=== PATIENT | male | born 1955 | race Caucasian/White ===

== ENCOUNTER 2017-01-16 16:33 | Inpatient (IN) | payer BC ==
--- NOTE | ~2017-01-16 | DS ---
Unit #: [id number] #: [id number] Patient: KALYAN BOBBY [id number] [address] [place], [place] [address] [id number] I MR#: [id number] NAME: KALYAN BOBBY. ROOM: 316 Age: 61 Sex: M Admission Date: 01/16/2017 : 1955 Discharge Date: 01/19/2017 Attending Physician: Dano Mcclure M.D. Primary Care Physician: Johnna Ac A.P.R.N. DISCHARGE SUMMARY PRINCIPAL DISCHARGE DIAGNOSES 1. Acute bilateral cerebellar infarcts. 2. Diffuse atherosclerotic plaque, stage IV atheroma of the aorta. 3. Qzaa-nd-vzuudzir concentric left ventricular hypertrophy. 4. Grade 1 diastolic dysfunction. 5. Hypertension. 6. Hyperlipidemia. 7. Tobacco use. 8. Complete occluded left vertebral artery. 9. 50% stenosis bilateral internal carotid arteries. 10. Type 2 diabetes mellitus, in poor control. 11. B12 deficiency. 12. Polycythemia. PROCEDURES Transesophageal echo on 01/19/2017. CONSULTANTS Dr. Gibbs from Neurology; Dr. Darling from Cardiology. REASON FOR HOSPITALIZATION The patient is a 61-year-old white male with history of tobacco use two packs a day, type 2 diabetes mellitus, hypertension, hyperlipidemia. 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 He eventually arrived in the emergency room much outside of the window for thrombolytic therapy. It was initially felt that his symptoms were improving and he might have had a TIA versus a CVA. On admission, he was afebrile. Blood pressure was 115/99, O2 sats were 98%. Vital signs were otherwise stable. CBC was normal except for hemoglobin of 18.1. PT/INR was within normal limits. CMP was normal except for random blood sugar of 252, sedimentation rate was 8, CRP 0.5, total cholesterol 279, triglycerides 659, HDL 30. CT scan of the head in the emergency room without contrast showed no active disease. Chest x-ray, no active disease. CT angiogram showed an occluded left vertebral artery and 50% stenosis of the bilateral internal carotid arteries. He did have collaterals around the left vertebral occlusion. The right vertebral artery was small, but patent. HOSPITAL COURSE The patient was admitted to the telemetry bed. Hemoglobin A1c was checked and was 8.7. He was placed on Accu-Cheks a.c. and h.s., low-dose sliding scale insulin. Neurology was consulted. They ordered a B12 and folic Unit #: [id number] #: [id number] Patient: KALYAN BOBBY. His B12 was low, but he had been started on heparin before realize this, so was not started on injections. His folic acid was 12.2, low within normal limits. Cardiac enzymes were normal. Again, he was started on a heparin drip. An MRI was performed and showed a large acute infarct in left cerebellar hemisphere involving the anterior aspect of the vermis. There were also punctate acute infarcts in the superior portion of the right cerebellar hemisphere without any evidence of hemorrhage. Because of this, it was felt that he might have likely had embolic phenomenon and that is why he was heparinized. He underwent transthoracic echo, which showed moderate concentric LVH, grade 1 diastolic dysfunction, but was otherwise normal without any evidence of patent foramen ovale by IV saline bubble study. He then underwent transesophageal echo, which was within normal limits except for a large atheromatous plaque within the aorta and felt that he should be on warfarin. He refused bridging with Lovenox. He refused inpatient [facility] at [facility] and is being discharged home on a healthy heart constant carb diet. He has been started on warfarin. We will check his PT/INR in 3 days with results called to the office for followup in 1 week. [facility] is to follow for home physical therapy and PT/INR. He is to see Dr. Leland Damian in 6 to 8 weeks. He is not to return to work until he is cleared by Cardiology. He was provided smoking cessation resources. Could be on aspirin 81 mg daily until his PT/INR is above 2. He was started on a low dose, because of the risk for hemorrhagic evolution of his stroke. He has given warfarin 5 mg p.o. today and then and 2.5 mg daily thereafter until his protime checked on 01/22/2017. He is on Januvia 100 mg daily, Lipitor 80 mg daily, Cozaar 50 mg daily, aspirin 81 mg daily again until his PT/INR is above 2 and will be started on B12 as well. We will start orally and then check in the office. He is also on Invokana 300 mg p.o. q.a.m. He will need to have a followup fasting lipid profile, LFTs, and CPK in about 6 weeks per discharge. Dictated by... Liam Vazquez/brad TD: 01/20/2017 14:08 JOB #: [id number] DISCHARGE SUMMARY Page 1 of 1 X Dano Mcclure MD X DISCHARGE SUMMARY
--- NOTE | ~2017-01-16 | CT18 ---
[facility] A Service of [facility] RADIOLOGY TEXT RESULTS PATIENT: KALYAN BOBBY LOCATION: [facility] 316-01 : 57 UNIT #: [id number] AGE: [address]: Dano Mcclure MD SEX: M ORDER DR: [id number] [facility] [address] [facility]. [place], [place] [address] [id number] I MR#: [id number] Acc #: [id number] NAME: KALYAN BOBBY. : 1955 SEX: M STUDY DATE/TIME: 01/16/2017 15:59 UNIT: [address] ROOM: [facility] STUDY DESCRIPTION: CT Angio Head Stroke Attending Physician: Dano Mcclure M.D. Ordering Physician: Marita Yoder M.D. Primary Care Physician: Johnna Ac A.P.R.N. MEDICAL IMAGING REPORT This report is preliminary unless electronic signature is present EXAM CT scan head and neck with contrast with carotid CT angiography 01/16/2017 HISTORY Left-sided facial numbness, headache and slurred speech onset this morning. TECHNIQUE Axial imaging was obtained from the mid mediastinum to the top of head with contrast. 80 mL of Isovue was used. CT angiography was performed with thick sliding MIPs, curved planar reformats and 3-D volumetric imaging with surface shaded and volume shaded display. This CT exam was performed with one or more of the following radiation dose reduction techniques: automatic exposure control, adjustment of mA and/or kV according to patient size, and iterative reconstruction. FINDINGS Extravascular structures are unremarkable. The CT angiographic study shows mild atherosclerotic change at the great vessel origins. There is mild soft plaque at the left subclavian artery origin that narrows the origin about 30%. In the posterior circulation the right vertebral is widely patent. The left vertebral is occluded proximally and fills at the mid cervical region by collaterals. Distally the left vertebral is the more dominant vertebral and it is widely patent distally as is the basilar artery. In the carotid circulation intimal thickening is seen in both common carotid arteries. There is plaque across both bifurcations. Maximum stenosis by NASCET criteria on both sides is approximately 50%. This is borderline hemodynamically significant. The distal carotids up through the siphons show nonocclusive plaque. No severe siphon stenosis is seen. [facility] A Service of [facility] RADIOLOGY TEXT RESULTS PATIENT: KALYAN BOBBY LOCATION: [facility] 316-01 : 57 UNIT #: [id number] AGE: [address]: Dano Mcclure MD SEX: M ORDER DR: In the intracranial circulation there is no evidence of aneurysm, vascular malformation or major branch vessel occlusion. No severe intracranial stenosis is seen. IMPRESSION Plaque at both carotid bifurcations with borderline significant stenosis of about 50% by NASCET criteria on both sides. No evidence of intracranial occlusive disease. No evidence of aneurysm. Mild plaque at the great vessel origins. Also noted is occlusion of the left vertebral artery at its origin but it fills by collaterals in the mid cervical region and is patent distally. The right vertebral is small caliber but patent. STAT * RESULT Dictated by... Simón Lin M.D. THIS IS AN ELECTRONICALLY VERIFIED REPORT Simón Lin M.D. at 01/18/2017 9:39 PM Violet TD: 01/16/2017 16:48 JOB #: [id number] MEDICAL IMAGING REPORT COPY
--- NOTE | ~2017-01-16 | MR18 ---
[facility] A Service of [facility] RADIOLOGY TEXT RESULTS PATIENT: KALYAN BOBBY LOCATION: [facility] 316- : 57 UNIT #: [id number] AGE: [address]: Dano Mcclure MD SEX: M ORDER DR: [id number] [facility] [address] [facility]. [place], [place] [address] [id number] I MR#: [id number] Acc #: [id number] NAME: KALYAN BOBBY. : 1955 SEX: M STUDY DATE/TIME: 01/16/2017 19:57 UNIT: [address] ROOM: [facility] STUDY DESCRIPTION: MR Brain Wo Contrast Attending Physician: Dano Mcclure M.D. Ordering Physician: Dano Mcclure M.D. Primary Care Physician: Johnna Ac A.P.R.N. MRI CENTER REPORT This report is preliminary unless electronic signature is present. EXAM MRI brain without contrast. DATE OF EXAM 01/16/2017 INDICATIONS Slurred speech. Left facial numbness since 10:30 a.m. today. PROCEDURE Multiplanar, multisequence MR imaging of the brain without the administration of contrast. COMPARISON Comparison head CT from earlier on the same day. FINDINGS There is a large acute infarct in the left cerebellum. It measures approximately 4.6 x 2.9 cm. There is patchy restricted diffusion along the superior aspect of the right cerebellar hemisphere, also suspected to represent small punctate acute infarcts. There is no evidence for acute hemorrhage or significant mass effect. The left cerebellar infarct does extend to involve the anterior portion of the vermis. There is no acute hemorrhage, extraaxial collection or hydrocephalus. There is lack of a normal-appearing flow void in the left vertebral artery. Refer to the earlier CTA of the head and neck for additional details. Otherwise, the remaining major intracranial vessels remain intact. There is a right mastoid air cell effusion. IMPRESSION 1. Large acute infarct in the left cerebellar hemisphere involving the anterior aspect the vermis. There are also punctate acute infarcts [facility] A Service of [facility] RADIOLOGY TEXT RESULTS PATIENT: KALYAN BOBBY LOCATION: [facility] 316-01 : 57 UNIT #: [id number] AGE: [address]: Dano Mcclure MD SEX: M ORDER DR: in the superior portion of the right cerebellar hemisphere. No significant mass effect or evidence for hemorrhage. 2. Lack of a flow void in the left vertebral artery. Refer to the earlier performed CTA of the head and neck for additional details. Dictated by... Julien Jasmine M.D. THIS IS AN ELECTRONICALLY VERIFIED REPORT Julien Jasmine M.D. at 01/19/2017 7:22 AM VU/artie TD: 01/17/2017 15:45 JOB #: [id number] MRI CENTER REPORT COPY
--- NOTE | ~2017-01-16 | CO ---
Unit #: [id number] #: [id number] Patient: KALYAN BOBBY [id number] [facility] [address] [facility]. [place], [place] [address] [id number] I MR#: [id number] NAME: KALYAN BOBBY. ROOM: 316 Age: 61 Sex: M Admission Date: 01/16/2017 : 1955 Attending Physician: Dano Mcclure M.D. Primary Care Physician: Johnna Ac A.P.R.N. Consultation Date: 01/17/2017 CONSULTATION REPORT PRIMARY CARE PHYSICIAN Johnna Ac A.P.R.N. REASON FOR CONSULTATION Dizziness. PATIENT IDENTIFICATION This is a 61-year-old right-handed white male, who was evaluated in room 316 at [facility]. SOURCE OF INFORMATION The patient and evaluation done by admitting team. PROBLEM LIST 1. History of tobacco abuse. 2. Type 2 diabetes mellitus. 3. Hypertension. 4. Hyperlipidemia. HISTORY OF PRESENT ILLNESS This is a 61-year-old right-handed white male, who actually presented to the emergency room at 03:56 p.m. yesterday for episode of dizziness. There is question about some face numbness. He said that this happened between 10 to 10:30 a.m. 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 He was very concerned about it. Looking at his history, there was no double vision, but initially it is reported that he had some change in vision and the issue was that he could not stay in the barrera. 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 When he came in here, symptoms were almost resolved. Obviously, he was not a tPA candidate because of duration and since his symptoms resolved, he was put in for possible TIA. His CT was reported as unremarkable. In the meantime, he ended up with MRI. The MRI shows a large left cerebellar infarct and a few areas which could be subacute to acute areas on the right side also. He may have lack of flow void in the left vertebral artery, but the right is okay and the basilar were reported okay as far as CTA is concern. Other thing that is important is that his blood pressure was significantly elevated as high as 171 systolic. On top of that, his hemoglobin A1c was 8.7. His H and H are 18.1 and 53.3, and his triglycerides were 659. He was supposedly on Lipitor 40 mg. He was not on aspirin. He also is a heavy smoker. Unit #: [id number] #: [id number] Patient: KALYAN BOBBY He does not drink, but it looks like he is in transportation, so probably keeping himself thirsty in order not to stop frequently. He clearly is much better. He has been up and about to go to the bathroom, but the concern is along with all his risk factors is a proximal source and I cannot really rule out arch atheroma, but on top of that, there are no palpitations reported, but I cannot rule out otherwise cardiac source. His echo was okay. No prior TIAs. No head injury or trauma or exposure to toxin. No episode of dissection. PAST MEDICAL HISTORY As discussed above. PAST SURGICAL HISTORY None. FAMILY HISTORY No stroke or hypercoagulable state or cornea issues. ALLERGIES None. HOME MEDICATIONS Losartan 50 mg, Invokana 300 mg, atorvastatin 10 mg. SOCIAL HISTORY He is . Lives with his . 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 No alcohol or drug use. REVIEW OF SYSTEMS The dizziness which is since resolved. CONSTITUTIONAL: No weight issues, fever, chills, rigor, or sweats. No sleep problems. HEENT: No headaches. No double vision, earache, runny nose, or sore throat. CARDIOVASCULAR: No chest pain, clubbing, cyanosis, orthopnea, or palpitation. PULMONARY: No shortness of air, cough, or expectoration. GI: No nausea, vomiting, diarrhea, or constipation. GENITOURINARY: No genitourinary symptom. EXTREMITIES: No extremity problems otherwise. BACK: No back problems. PSYCHIATRIC: No psychiatric issue. NEUROLOGIC: New stroke. No hematologic, dermatological, or endocrine problem known to me. PHYSICAL EXAMINATION VITAL SIGNS: Temperature 97.8, pulse 78, respirations 20, blood pressure 151/75, O2 saturations 97% to 98%. Weight of 184 pounds, BMI was 28. NEUROLOGIC: The patient is awake. He is alert. He is fully oriented. He can name and he can follow commands. No right/left confusion. No finger agnosia. Unit #: [id number] #: [id number] Patient: KALYAN BOBBY Cranial examination demonstrates full dunham of vision to confrontation. Eye movements are conjugate. I did not see any ptosis. I did not see any nystagmus. Extraocular movements are intact. Sensation on the face and scalp are normal. Strength of muscles of facial expression normal. Hearing seemed to be intact bilaterally. Tongue was midline. Uvula was midline. Palate elevation is normal. Head turning and shoulder shrugs are unremarkable. Motor examination demonstrated normal bulk, tone. Strength was essentially 5/5. Sensory examination intact for soft touch and pain sensation. No extinction was seen. Romberg was not evaluated. Gait examinations deferred. I could not get any reflexes. Toes are equivocal. Coordination was normal for ixqdqg-py-idtr-to-finger and fpy-qp-olztba. DIAGNOSTIC STUDIES LABORATORY RESULTS: Personally reviewed. IMAGING STUDIES: Personally reviewed. IMPRESSION 1. This is a very interesting 61-year-old gentleman with bilateral cerebellar infarcts with his smoking, high hemoglobin A1c, hyperlipidemia. I am concerned that there is a proximal source. Dysrhythmia has not been ruled out, so I will put in the event monitor, I want FARIDEH on him. In the meantime, I will put him on anticoagulation. 2. Risk of anticoagulation especially hemorrhagic conversion of the large cerebellar stroke discussed with them and they agreed to continue with the medication. 3. I am not really convinced that this gentleman is taking care of himself considering his hemoglobin A1c, his hypertension, his hyperlipidemia that is an issue. 4. Polycythemia vera has to be ruled out. I will check his CBC again, probably put him on fluids right away as at least 75 mL of saline. 5. He may need further evaluation. Also, his smoking may be contributing to this, so we will see how things go and further treatment will be based on what will be fine and I will keep you informed and detailed discussion with the patient and his and I will follow up. Stroke education and modification of stroke risk factors. He should have gone to the nearest emergency room in [place] and had stroke evaluations done. I will follow up. Call me for any other questions, issues, or concerns and further treatment will be based on findings. Dictated by... Liam Mcpherson/brad TD: 01/17/2017 22:45 JOB #: [id number] Unit #: [id number] #: [id number] Patient: KALYAN BOBBY CONSULTATION REPORT X Odilia Gibbs MD X CONSULTATION REPORT
--- NOTE | ~2017-01-16 | HM ---
Unit #: [id number] #: [id number] Patient: KALYAN BOBBY [id number] [place], [place] [address] [id number] I MR#: [id number] NAME: KALYAN BOBBY. : 1955 SEX: M STUDY DATE/TIME: 01/17/2017 UNIT: C3A PCU ROOM: [address] [place] [address] DESCRIPTION: Attending Physician: Dano Mcclure M.D. Primary Care Physician: Johnna Ac A.P.R.N. CARDIOLOGY REPORT EXAM 24-hour Holter monitor. DATE APPLIED 01/17/2017 DATE SCANNED 01/19/2017 READ BY [facility]. ORDERED BY Dr. Mcclure. REASON FOR STUDY TIA. FINDINGS Underlying rhythm is normal sinus rhythm with an average heart rate of 79 beats per minute, minimum heart rate of 63 beats per minute, and a maximum heart rate of 111 beats per minute. The minimum heart rate of 63 beats per minute is noted at 8:14 a.m. The maximum heart rate of 111 beats per minute is noted at 11:11 p.m. The patient had a 1.08 second pause noted at 8:06 a.m. The patient had 52 single premature ventricular complex and four ventricular couplet noted. The patient had 45 single premature atrial complex noted. The patient had a three-beat run of SVT at a heart rate of 107 beats per minute. The patient did not record any symptoms. CONCLUSION 1. Underlying rhythm is normal sinus rhythm with an average heart rate of 79 beats per minute, minimum heart rate of 63 beats per minute, and a maximum heart rate of 111 beats per minute. 2. No sustained atrial or ventricular arrhythmias noted. 3. No significant pauses noted. 4. Occasional single multifocal premature ventricular complex and premature atrial complex noted. The patient had a three-beat run of paroxysmal supraventricular tachycardia at a heart rate of 107 beats per minute. 5. The patient did not record any symptoms. Unit #: [id number] #: [id number] Patient: KALYAN BOBBY Dictated by... Liam Paul TD: 01/29/2017 15:47 JOB #: [id number] CARDIOLOGY REPORT Page 1 of 1 X Jannet Darling MD <ELECTRONICALLY SIGNED> 05/23/17 1429 HOLTER MONITOR REPORT
--- NOTE | ~2017-01-16 | HP ---
Unit #: [id number] #: [id number] Patient: KALYAN BOBBY [id number] [address] [place], [place] [address] [id number] I MR#: [id number] NAME: KALYAN BOBBY. ROOM: 316 Age: 61 Sex: M Admission Date: 01/16/2017 : 1955 Attending Physician: Dano Mcclure M.D. Primary Care Physician: Johnna Ac A.P.R.N. HISTORY AND PHYSICAL HISTORY OF PRESENT ILLNESS This is a 61-year-old white male with history of tobacco use, type 2 diabetes mellitus, hypertension, hyperlipidemia. 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 His then eventually brought him to the emergency room hours later where his symptoms had started improving. he did have a headache and blurred vision but he is not sure which eye, no focal deficits, or trouble with speech. All of it cleared up in the emergency room. His initial evaluation was negative. He is admitted for probable TIA. The patient currently has a dull headache, some slowed speech and some blurred vision but most of his symptoms have completely resolved. PAST MEDICAL HISTORY 1. History of tobacco use. 2. Type 2 diabetes mellitus. 3. Hypertension. 4. Hyperlipidemia. PAST SURGICAL HISTORY None. HOME MEDICATIONS 1. Losartan 50 mg daily. 2. Invokana 300 mg daily. 3. Atorvastatin 10 mg daily. ALLERGIES No known drug allergies. 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 No alcohol or street drug use. FAMILY HISTORY Noncontributory. PHYSICAL EXAMINATION VITAL SIGNS: Afebrile. Blood pressure has been all over the place, currently 115/99. Pulse 86, respirations 18, room air O2 saturation 98%. GENERAL: He is awake, alert, oriented x3. No acute distress. HEENT: Unremarkable. NECK: Supple without JVD, bruits, adenopathy, or thyromegaly. Unit #: [id number] #: [id number] Patient: DIAMANTE,KALYAN W LUNGS: Clear to auscultation. HEART: Regular rate and rhythm without murmurs, rubs, or gallops. ABDOMEN: Soft, nondistended, nontender with positive bowel sounds and no hepatosplenomegaly. EXTREMITIES: No clubbing, cyanosis, or edema. GENITOURINARY: Deferred. RECTAL: Deferred. NEUROLOGIC: No focal deficits. DIAGNOSTIC STUDIES LABORATORY: CBC normal except for a hemoglobin of 18.1. PT/INR is within normal limits. CMP is normal except for a random blood sugar of 252. Sed rate 8, CRP less than 0.5. Total cholesterol 279, triglycerides 659, HDL 30. IMAGING: CT scan of the head within normal limits. Chest x-ray no active disease. CT angiogram reportedly shows no significant stenosis, aneurysms, or other abnormalities. MRI was performed but there is no report. CARDIOVASCULAR: EKG normal sinus rhythm, right bundle branch block. IMPRESSION 1. Transient ischemic attack. 2. Hypertension. 3. Hyperlipidemia. 4. Type 2 diabetes mellitus. 5. Tobacco use. 6. Right bundle branch block. 7. Polycythemia. PLAN 1. Review MRI. 2. 2D echo with Doppler and bubble diffusion. 3. Neurology to consult. 4. Lovenox for DVT prophylaxis. 5. Aspirin 324 given in the ER. Now, 81 mg daily. 6. Increase Lipitor for better lipid control. 7. Check his A1c. 8. Further evaluation pending results of the above. Dictated by Liam Vazquez/nicol TD: 01/17/2017 11:37 JOB #: [id number] Unit #: [id number] #: [id number] Patient: KALYAN BOBBY W HISTORY AND PHYSICAL X Dano Mcclure MD HISTORY AND PHYSICAL
--- NOTE | ~2017-01-16 | A ---
[facility] Nutrition Therapy DATE: 01/19/17 Patient: KALYAN BOBBY Physician: POPPY Address: [address] [place] [address] Room/Bed: [address] [place] [address], Zip: [place] [address] Admit Date: 01/16/17 Date of : 57 Height: 5 8 Weight: 184 83.8 NUTRITIONAL ASSESSMENT: REASON: Nutrition consult 61 y/o male admitted for TIA PMH: T2DM, tobacco use, HTN, HLD Anthropometrics: Ht: 68" Wt: 83.8 kg (184#) BMI: 28 (overweight) Labs: Gluc 252, POC 160-247, A1c 8.7, Chol 279, Triglycerides 659 Meds: Novolog, Lipitor I/O & Bowel function: Last BM 01/18 Skin Integrity: No issues noted No edema Assessment: Chart reviewed, events noted. Pt given heart heathy diet education. TIA MNT, 1800 calorie 5-day menu plan, label tips handouts were given/reviewed with pt. Pt's was present at time of visit. RD encouraged well-balanced diet and weight loss. Pt reported no further diet questions at this time. See recommendations below. Dx: 1) Overweight RT dx, diet AEB BMI 28. 2) Altered nutrition related lab values r/t diet, clinical condition AEB A1c 8.7, TG 659, Chol 279, need for diet education. Intervention: 1. Diet education Monitoring, Evaluation and Goals: 1. Weight; promote gradual weight loss 2. Labs; WNL: Gluc, A1c, Chol, Triglycerides Recommendations: 1. Consider adding healthy heart diet restriction to order to promote gradual weight loss. 2. RD provided healthy heart, consistent carb diet education with handouts. Encourage pt to follow upon discharge to lower A1c, triglycerides, and cholesterol. [facility] Nutrition Therapy DATE: 01/19/17 Patient: KALYAN BOBBY Physician: POPPY Address: [address] [place] [address] Room/Bed: [address] [place] [address], Zip: [place] [address] Admit Date: 01/16/17 Date of : [birth year] Height: 5 8 Weight: 184 83.8 3. Encourage smoking cessation to reduce risk of stroke. Pt is at a mild nutrition risk. RD will f/u per protocol. Respectfully, Isabelle Hernandez, Mmd Unit Teacher Debbie Skinner RD, LD [facility] cc: client file
--- NOTE | ~2017-01-16 | EKG ---
PATIENT: KALYAN BOBBY UNIT #: [id number] Ventricular Rate: 86 BPM Atrial Rate: 86 BPM P-R Interval: 156 ms QRS Duration: 140 ms Q-T Interval: 408 ms QTC Calculation(Bezet): 488 ms P [place]: 76 degrees Calculated R [place]: -95 degrees Calculated T [place]: 48 degrees Diagnosis Line: Normal sinus rhythm Diagnosis Line: Right bundle branch block with repolarization Diagnosis Line: abnormality Diagnosis Line: Abnormal ECG Diagnosis Line: No previous ECGs available Diagnosis Line: Confirmed by BROOK POWELL MD ([id number]) on 01/19/2017 Diagnosis Line: 7:23:14 AM INTERPRETING MD: SHERRY SAMUELS
--- NOTE | ~2017-01-16 | CR72 ---
[facility] A Service of [facility] RADIOLOGY TEXT RESULTS PATIENT: KALYAN BOBBY LOCATION: [facility] 316-01 : [birth year] UNIT #: [id number] AGE: [address]: Dano Mcclure MD SEX: M ORDER DR: [id number] [facility] [address] [place], [place] [address] [id number] I MR#: [id number] Acc #: [id number] NAME: KALYAN BOBBY : 1955 SEX: M STUDY DATE/TIME: 01/16/2017 16:07 UNIT: [facility] ROOM: 80079 STUDY DESCRIPTION: CR Chest Single View Portable Attending Physician: Dano Mcclure M.D. Ordering Physician: Marita Yoder M.D. Primary Care Physician: Johnna Ac A.P.R.N. MEDICAL IMAGING REPORT This report is preliminary unless electronic signature is present EXAM Portable chest HISTORY 61-year-old male with history of stroke like symptoms today. Mild congestion. COMPARISON No comparisons. FINDINGS No acute infiltrate. Calcified granuloma within the right base. Heart size normal. IMPRESSION No active disease. Dictated by... Mike Olvera M.D. THIS IS AN ELECTRONICALLY VERIFIED REPORT Mike Olvera M.D. at 01/19/2017 8:36 AM COLEEN/олег TD: 01/17/2017 02:22 JOB #: [id number] MEDICAL IMAGING REPORT COPY
--- NOTE | ~2017-01-16 | CT72 ---
[facility] A Service of [facility] RADIOLOGY TEXT RESULTS PATIENT: KALYAN BOBBY LOCATION: [facility] 316-01 : [birth year] UNIT #: [id number] AGE: [address]: Dano Mcclure MD SEX: M ORDER DR: [id number] [place] [id number] [facility] [place], [place] [address] [id number] I MR#: [id number] Acc #: [id number] NAME: KALYAN BOBBY : 1955 SEX: M STUDY DATE/TIME: 01/16/2017 15:52 UNIT: [facility] ROOM: 37484 STUDY DESCRIPTION: CT Head Wo Contrast Stroke Attending Physician: Dano Mcclure M.D. Ordering Physician: Marita Yoder M.D. Primary Care Physician: Johnna Ac A.P.R.N. MEDICAL IMAGING REPORT This report is preliminary unless electronic signature is present EXAM Head CT without contrast. DATE OF EXAM 01/16/2017 HISTORY Left-sided facial numbness, onset at 11 o'clock this morning with headache and slurred speech. TECHNIQUE Axial imaging was obtained through the head without contrast. NOTE: This CT exam was performed with one or more of the following radiation dose reduction techniques: automatic exposure control, adjustment of mA and/or kV according to patient size, and iterative reconstruction. FINDINGS Axial noncontrast images were obtained from the skull base to the vertex. Ventricular size and configuration are normal. There is no evidence of acute infarct or hemorrhage. There are no extra-axial fluid collections. No mass lesion or mass effect is seen. There are no skull fractures. IMPRESSION Normal noncontrast head CT. Dictated by... Simón Lin M.D. THIS IS AN ELECTRONICALLY VERIFIED REPORT Simón Lin M.D. at 01/18/2017 9:40 PM [facility] A Service of [facility] RADIOLOGY TEXT RESULTS PATIENT: KALYAN BOBBY LOCATION: [facility] 316-01 : 57 UNIT #: [id number] AGE: [address]: Dano Mcclure MD SEX: M ORDER DR: SHWETA/artie TD: 01/16/2017 23:35 JOB #: [id number] MEDICAL IMAGING REPORT COPY
[2017-01-16 16:06] LABS: POC - GFR >60.0 mL/min (>60)
[2017-01-16 16:13] LABS: BASOPHIL% 0.3 % (0-2.5); EOSINOPHIL% 0.2 % (0.0-7.0); HEMATOCRIT 53.3 % (38.0-50.0); HEMOGLOBIN 18.1 gm/dL (13.0-16.0); LYMPHOCYTE# 1.2 X10e3 (1.0-3.5); LYMPHOCYTE% 15.9 % (17.0-45.0); MEAN CELL VOLUME 89.3 FL (83-96); MEAN CORPUSCULAR HEMOGLOBIN 30.4 PG (28-34); MEAN CORPUSCULAR HGB CONC 34.1 g/dL (30-36); MEAN PLATELET VOLUME 8.5 FL (6.5-11.5); MONOCYTE# 0.2 X10e3 (0-1.0); MONOCYTE% 2.9 % (3.0-12.0); NEUTROPHIL# 6.2 X10e3 (1.5-7.1); NEUTROPHIL% 80.7 % (40-75); PLATELET COUNT 145 X10e3 (140-420); RED BLOOD COUNT 5.96 X10e (3.90-5.60); RED CELL DISTRIBUTION WIDTH 12.8 % (11.0-15.5); WHITE BLOOD COUNT 7.7 X10e3 (4.0-10.5)
[2017-01-16 16:16] LABS: DIFF IND NO
[2017-01-16 16:26] LABS: PROTHROMBIN TIME (PATIENT) 10.1 SECONDS (9.6-11.5)
[~2017-01-16 16:33] MED LIST: METFORMIN; VYTORIN; WELLBUTRIN
[2017-01-16 16:36] LABS: ALBUMIN SERUM 4.4 g/dL (3.5-5.0); ALKALINE PHOSPHATASE 73 U/L (32-92); ALT (SGPT) 21 U/L (10-40); AST (SGOT) 13 U/L (10-42); BILIRUBIN, DIRECT 0.1 mg/dL (0.0-0.2); BILIRUBIN,INDIRECT 0.9 mg/dL (0.0-0.9); BLOOD UREA NITROGEN 16 mg/dL (9-23); BUN/CREATININE RATIO 17.77; CALCIUM SERUM 9.3 mg/dL (8.4-10.2); CARBON DIOXIDE 26 mmol/L (22-31); CHLORIDE 100 mmol/L (100-111); CREATININE SERUM 0.9 mg/dL (0.6-1.4); GLOM FILT RATE Estimated ABOVE60 mL/min (>60); GLUCOSE FASTING 252 mg/dL (70-110); POTASSIUM 4.3 mmol/L (3.5-5.1); PROTEIN TOTAL SERUM 8.1 g/dL (6.0-8.3); SODIUM 136 mmol/L (135-145)
[2017-01-16] MEDS ORDERED: LOSARTAN POTASS50 MG PO (17:40)
[2017-01-16] MEDS ORDERED: INVOKANA300 MG PO (17:40)
[2017-01-16] MEDS ORDERED: ATORVASTATIN CA10 MG PO (17:41)
[2017-01-17 05:10] LABS: CHOLESTEROL 279 mg/dL (0-200); HDL CHOLESTEROL 30 mg/dL (29-75)
[2017-01-17 05:37] LABS: TRIGLYCERIDES 659 mg/dL (10-160)
[2017-01-17 17:36] LABS: BASOPHIL# 0.1 X10e3 (0-0.3); BASOPHIL% 0.8 % (0-2.5); EOSINOPHIL# 0.1 X10e3 (0-0.7); EOSINOPHIL% 0.8 % (0.0-7.0); HEMATOCRIT 49.3 % (38.0-50.0); HEMOGLOBIN 16.6 gm/dL (13.0-16.0); LYMPHOCYTE# 2.4 X10e3 (1.0-3.5); LYMPHOCYTE% 36.3 % (17.0-45.0); MEAN CELL VOLUME 89.6 FL (83-96); MEAN CORPUSCULAR HEMOGLOBIN 30.2 PG (28-34); MEAN CORPUSCULAR HGB CONC 33.7 g/dL (30-36); MEAN PLATELET VOLUME 8.4 FL (6.5-11.5); MONOCYTE# 0.4 X10e3 (0-1.0); MONOCYTE% 6.6 % (3.0-12.0); NEUTROPHIL# 3.7 X10e3 (1.5-7.1); NEUTROPHIL% 55.5 % (40-75); PLATELET COUNT 136 X10e3 (140-420); RED CELL DISTRIBUTION WIDTH 12.5 % (11.0-15.5); WHITE BLOOD COUNT 6.7 X10e3 (4.0-10.5)
[2017-01-17 17:37] LABS: DIFF IND NO
[2017-01-17 19:15] LABS: FOLATE (FOLIC ACID) 12.2 ng/mL (>5.8)
[2017-01-17 22:22] LABS: %MB 2.3 % (0.0-4.0); MB 1.4 ng/ml
[2017-01-19 08:56] LABS: BASOPHIL% 0.7 % (0-2.5); EOSINOPHIL# 0.1 X10e3 (0-0.7); EOSINOPHIL% 1.1 % (0.0-7.0); HEMATOCRIT 49.9 % (38.0-50.0); HEMOGLOBIN 16.9 gm/dL (13.0-16.0); LYMPHOCYTE# 2.2 X10e3 (1.0-3.5); LYMPHOCYTE% 30.8 % (17.0-45.0); MEAN CELL VOLUME 88.7 FL (83-96); MEAN CORPUSCULAR HEMOGLOBIN 30.1 PG (28-34); MEAN CORPUSCULAR HGB CONC 33.9 g/dL (30-36); MEAN PLATELET VOLUME 8.8 FL (6.5-11.5); MONOCYTE# 0.5 X10e3 (0-1.0); MONOCYTE% 6.8 % (3.0-12.0); NEUTROPHIL# 4.3 X10e3 (1.5-7.1); NEUTROPHIL% 60.6 % (40-75); PLATELET COUNT 136 X10e3 (140-420); RED BLOOD COUNT 5.62 X10e (3.90-5.60); WHITE BLOOD COUNT 7.1 X10e3 (4.0-10.5)
[2017-01-19 08:59] LABS: DIFF IND NO
[2017-01-19] MEDS ORDERED: MR XX (10:00)
[2017-01-19 17:19] LABS: INR 1.1; PROTHROMBIN TIME (PATIENT) 11.2 SECONDS (9.6-11.5)
[2017-01-19] MEDS ORDERED: COUMADIN2.5 MG PO (17:37)
[2017-01-19] MEDS ORDERED: JANUVIA100 MG PO (17:38)
[2017-01-19] MEDS ORDERED: BAYER CHEWABLE81 MG PO (17:39)
[2017-01-19] MEDS ORDERED: B-121000 MC1 PO (17:40)
[2017-01-19] MEDS ORDERED: ATORVASTATIN CA80 MG PO (17:41)
== END 2017-01-19 19:06 | disposition home health service (06) | DRG 66 ==
LOC: CED 16:33 → CEDOF 18:30 → C3A PCU 01-17 10:51
PROVIDERS: Emergency Medicine; Internal Medicine; Psychiatry & Neurology Neurology
PROC: B246YZZ Ultrasonography of Right and Left Heart using Other Contrast (ICD-10-PCS; principal; 2017-01-17)
PROC: B246ZZ4 Ultrasonography of Right and Left Heart, Transesophageal (ICD-10-PCS; 2017-01-19)
PROC: B32GYZZ Computerized Tomography (CT Scan) of Bilateral Vertebral Arteries using Other Contrast (ICD-10-PCS; 2017-01-19)
DX: I63.443 Cerebral infarction due to embolism of bilateral cerebellar arteries (principal); E11.65 Type 2 diabetes mellitus with hyperglycemia; I10 Essential (primary) hypertension; E78.5 Hyperlipidemia, unspecified; I65.02 Occlusion and stenosis of left vertebral artery; I65.23 Occlusion and stenosis of bilateral carotid arteries; E53.8 Deficiency of other specified B group vitamins; D75.1 Secondary polycythemia; F17.210 Nicotine dependence, cigarettes, uncomplicated
CPT/HCPCS: 36415; 70450; 70496; 70498; 70551; 71010; 80048; 80061; 80076; 82550; 82553; 82565; 82607; 82746; 82947; 83036; 84484; 85025; 85610; 85652; 85730; 86140; 92523-GN; 92610; 93005; 93225; 93226; 93306; 93312; 94760; 96360; 97110; 97116; 97162; 97166; 97530; 99291; G8978-GP; G8979-GP; J1644; J1650; J1815; J2250; J3010; Q9967

== ENCOUNTER → 2017-03-06 | Outpatient (CLI) | payer BC ==
[~2017-03-06] MED LIST changes: +ATORVASTATIN CA10 MG PO; +ATORVASTATIN CA80 MG PO; +B-121000 MC1 PO; +BAYER CHEWABLE81 MG PO; +COUMADIN2.5 MG PO; +INVOKANA300 MG PO; +JANUVIA100 MG PO; +LOSARTAN POTASS50 MG PO; +MR XX
--- NOTE | ~2017-03-06 | TH ---
Unit #: [id number] #: [id number] Patient: KALYAN BOBBY [id number] [address] [address] [id number] O MR#: [id number] NAME: KALYAN BOBBY. : 1955 SEX: M STUDY DATE/TIME: 03/06/2017 UNIT: [facility] ROOM: STUDY DESCRIPTION: Attending Physician: Jannet Darling M.D. Primary Care Physician: Johnna Ac A.P.R.N. CARDIOLOGY REPORT EXAM Lexiscan Cardiolite stress test, nuclear portion. PROCEDURE Using technetium 99m labeled Cardiolite, rest and stress SPECT images were obtained. Multiple SPECT images were obtained in various views including horizontal and vertical long axis and short axis views of the left ventricle. Images were obtained by gated SPECT method. The patient was administered 9.97 mCi of Cardiolite at rest. The patient was administered 31.5 mCi of Cardiolite after Lexiscan infusion was completed. On the stress images, there is a gcnai-eu-jjryyo sized area of moderate decreased isotope activity inferiorly. The rest images showed normal perfusion. Comparing rest and stress images, there is suspicion of a rhdy-ux-rdrufjiq area of stress-induced ischemia involving the inferior wall of the left ventricle. The left ventricular ejection fraction is calculated to be 54%. There is no focal wall motion abnormality seen. CONCLUSION 1. There is suspicion for possible whwmq-fc-qpvmzm sized area of stress-induced ischemia involving the inferior wall of the left ventricle. 2. The left ventricular ejection fraction is calculated to be 54%. 3. There is no focal wall motion abnormality seen. 4. Abnormal Lexiscan Cardiolite stress test. 5. Technically limited study. Clinical correlation is requested. Dictated by... Liam Paul TD: 03/06/2017 12:39 JOB #: [id number] Unit #: [id number] #: [id number] Patient: KALYAN BOBBY CARDIOLOGY REPORT Page 1 of 1 X Jannet Darling MD <ELECTRONICALLY SIGNED> 05/23/17 1429 CARDIOLOGY REPORT
--- NOTE | ~2017-03-06 | ST ---
Unit #: [id number] #: [id number] Patient: KALYAN BOBBY [id number] [facility] [address] [place], [place] [address] [id number] O MR#: [id number] NAME: KALYAN BOBBY. : 1955 SEX: M STUDY DATE/TIME: 03/06/2017 UNIT: [facility] ROOM: STUDY DESCRIPTION: Lexiscan cardiolite stress Attending Physician: Jannet Darling M.D. Primary Care Physician: Johnna Ac A.P.R.N. CARDIOLOGY REPORT EXAM Lexiscan Cardiolite stress test. DESCRIPTION Baseline EKG: Normal sinus rhythm with ventricular rate 70 BPM, right bundle branch block, poor R wave progression, left atrial abnormality. Lexiscan is a 4 minute test with Lexiscan being injected within the first minute, followed by Cardiolite. EKG during the test was equivocal baseline. No acute ischemic changes. The patient had no complaints of chest pain, palpitations or dizziness. Had increased shortness of breath and fatigueness, which resolved in recovery phase. Maximum heart rate response was 95 BPM with a maximum blood pressure response of 123/72 mmHg. Cardiolite was injected after Lexiscan within the first minute of the test. Radionuclide test pending. Please correlate with nuclear images. Dictated by... Malatih Pagan A.P.R.N. for Liam Paul/earlene TD: 03/06/2017 11:25 JOB #: [id number] CC: [facility] CARDIOLOGY REPORT Page 1 of 1 X Malathi Pagan APRN CARDIOLOGY REPORT
== END | disposition home or self-care (01) ==
LOC: CNUC 07:05
DX: I70.90 Unspecified atherosclerosis (principal); R94.39 Abnormal result of other cardiovascular function study
CPT/HCPCS: 78452; 93017; A9500; J2785